=== PATIENT | female | born 1960 | race Caucasian/White ===

== ENCOUNTER → 2018-07-10 | Outpatient (CLI) | payer BC ==
[~2018-07-10] MED LIST: ALPR-448 PO; BUPR-472 PO; BUPR300T56 PO; LISI-353 PO; MULT1TAB64 PO; NAPR1TAB10 PO
--- NOTE | 2018-07-10 08:30 | EKG ---
FACILITY: [facility] PATIENT NAME: SAMUEL HONG : [id number] MR: [id number]: [id number] EXAM DATE: ORDERING PHYSICIAN: ETELVINA GROSS TECHNOLOGIST: Test Reason : Pre-op Blood Pressure : / mmHG Vent. Rate : 078 BPM Atrial Rate : 078 BPM P-R Int : 152 ms QRS Dur : 082 ms QT Int : 396 ms P-R-T Axes : -80 004 034 degrees QTc Int : 451 ms Appears to be a sinus rhythm, but unusual P wave axis Decreased R wave progression anteriorly Question hint of delta wave in II, III, AVF Abnormal ECG No previous ECGs available Confirmed by VELIA DAVISON [id number] on 07/10/2018 4:12:26 PM Referred By: Confirmed By:VELIA DAVISON
== END ==
LOC: RESP 07:57
PROVIDERS: ATTEND Anesthesiology
DX: Z01.810 Encounter for preprocedural cardiovascular examination (principal); S83.512A Sprain of anterior cruciate ligament of left knee, initial encounter; S82.152A Displaced fracture of left tibial tuberosity, initial encounter for closed fracture; R94.31 Abnormal electrocardiogram [ECG] [EKG]
CPT/HCPCS: 93005

== ENCOUNTER → 2018-07-10 | Outpatient (CLI) | payer BC ==
[2018-07-10 08:18] LABS: PLATELET COUNT, AUTOMATED 259 K/uL (150-450)
[2018-07-10 08:41] LABS: LDL CHOLESTEROL 123 mg/dl
== END ==
LOC: LAB 07:53
PROVIDERS: ATTEND Emergency Medicine
DX: F32.9 Major depressive disorder, single episode, unspecified (principal); I10 Essential (primary) hypertension
CPT/HCPCS: 36415; 82040; 82247; 82310; 82374; 82435; 82465; 82565; 82607; 82947; 83718; 84075; 84132; 84155; 84295; 84443; 84450; 84460; 84478; 84520; 85025

== ENCOUNTER → 2018-10-14 | Outpatient (CLI) | payer BC ==
[~2018-10-14] MED LIST changes: +CYA1000 PO; +SERT-181 PO; +SERT-184 PO
== END ==
LOC: LAB 08:13
PROVIDERS: ATTEND Emergency Medicine
DX: R19.7 Diarrhea, unspecified (principal)
CPT/HCPCS: 87045; 87493; 87505